=== PATIENT | male | born 1990 | race Caucasian/White ===

== ENCOUNTER 2017-03-27 12:06 | Emergency (ER) | payer BC | END 2017-03-27 13:01 | disposition home or self-care (01) | LOC: M ED 12:06 | DX: T78.40XA Allergy, unspecified, initial encounter (principal); Y92.9 Unspecified place or not applicable; Y93.9 Activity, unspecified; Z79.899 Other long term (current) drug therapy | CPT/HCPCS: 99282 ==

== ENCOUNTER 2017-05-10 08:46 | Emergency (ER) | payer BC ==
[2017-05-10] MEDS: predniSONE 20 MG TAB PO (09:30)
[2017-05-10] MEDS: AZITHROMYCIN 250 MG TAB PO (09:45)
[2017-05-10] MEDS: ACETAMINOPHEN 325 MG TAB PO (09:45)
== END 2017-05-10 10:20 | disposition home or self-care (01) ==
LOC: M ED 08:46
DX: J02.0 Streptococcal pharyngitis (principal); F17.200 Nicotine dependence, unspecified, uncomplicated
CPT/HCPCS: 87880

== ENCOUNTER → 2022-06-09 | Outpatient (CLI) | payer BC, OTHER ==
[~2022-06-09] MED LIST: AZIT-12 PO; BENA25TA10 PO; MAGICMW SSP; PEPC1TAB5 PO; PRED20TA PO; [UNRECOGNIZED DRUG - CODE]
== END ==
LOC: M PLAIMG 13:53
PROVIDERS: ATTEND Physician Assistant
DX: R06.00 Dyspnea, unspecified (principal)

== ENCOUNTER → 2022-07-08 | Outpatient (CLI) | payer OTHER | LOC: M SLEEP 20:00 | PROVIDERS: ATTEND Nurse Practitioner Family | DX: G47.33 Obstructive sleep apnea (adult) (pediatric) (principal) ==

== ENCOUNTER → 2022-08-15 | Outpatient (CLI) | payer OTHER | LOC: M SLEEP 20:00 | PROVIDERS: ATTEND Nurse Practitioner Family | DX: G47.33 Obstructive sleep apnea (adult) (pediatric) (principal) ==